=== PATIENT | female | born 1935 | race Caucasian/White ===

== ENCOUNTER → 2017-08-06 | Outpatient (CLI) | payer MEDICARE ==
[~2017-08-06] MED LIST: AUGM875T PO; CENTTAB9 PO; FEXO180 PO; FLON0.053; OCUV PO; PRED20 PO
--- NOTE | 2017-08-08 00:05 | EKG ---
Date Performed: 08/06/2017 Time Performed: 14:07:06 PTAGE: 81 years EKG: Sinus rhythm POSSIBLE LEFT ATRIAL ENLARGEMENT MARKED LEFT AXIS DEVIATION INTRAVENTRICULAR CONDUCTION DELAY ABNORM AL ECG PREVIOUS TRACING : 07/26/2003 17.29 Since the prior tracing, there has been no significant knowles DOCTOR: Gunnar Corona Interpretating Date/Time 08/08/2017 00:04:33
== END ==
LOC: HCAV 13:32
PROVIDERS: ATTEND Pediatrics
DX: Z01.818 Encounter for other preprocedural examination (principal); R94.31 Abnormal electrocardiogram [ECG] [EKG]
CPT/HCPCS: 93005